=== PATIENT | male | born 1965 | race Caucasian/White ===

== ENCOUNTER 2024-07-30 19:01 | Inpatient (IN) | payer OTHER, SELFPAY ==
--- NOTE | ~2024-07-30 | CT_ITS ---
CLINICAL HISTORY: mulitocal pneumonia CT angiography chest with contrast. 3D Postprocessing. Comparison: None Findings: The heart is normal size. RV/LV ratio is normal. Mild atherosclerotic vascular disease of thoracic aorta. No aneurysm. No pulmonary artery filling defects. Prominent opacity in the left lower lobe abutting the pleura with 2 internal loculated fluid collections with some gas in the collections measuring 3.3 cm x 4.4 cm and 1.9 cm x 1 9 cm. Otherwise lungs are clear. No pleural effusion or pneumothorax. Small left hilar nodes and mediastinal nodes likely reactive. Visualized thyroid and thoracic esophagus within normal limits. The upper abdomen demonstrates no acute process. Thickening of left adrenal gland. No acute fractures. Mild degenerative changes of the spine. IMPRESSION: 1. No pulmonary embolus. 2. Prominent left lower lobe opacity with 2 adjacent loculated fluid collections with some gas in the collections. Findings suspicious for pneumonia and pulmonary abscesses with reactive hilar mediastinal nodes. Clinical correlation recommended and after treatment follow-up is recommended to ensure complete resolution and no underlying mass. This document has been electronically signed by: Oma Jessica MD on 07/30/2024 21:11:40
[2024-07-30 19:05] VITALS: BP 137/72; PULSE 94; RESP 20; TEMP 38; O2SAT 97; BMI 22.8
--- NOTE | 2024-07-30 19:09 | ED_ITS ---
HPI - General Adult General Chief complaint: Dyspnea Stated complaint: pneumonia - sent by Urgent Care Time Seen by Provider: 07/30/24 19:11 Source: patient Mode of arrival: ambulatory Limitations: no limitations History of Present Illness ED Provider: radha locke NP HPI narrative: Patient is a 58-year-old male reported past medical history of dementia, chronic tobacco smoker half a pack per day who presents emergency department for evaluation. He states that he coming from urgent Care today, he was referred to emergency department due to concern for multifocal pneumonia, early cavitating lesions. When asked for risk factors in regard to TV he does admit that about 5 years ago he was incarcerated for about 4 or 5 years otherwise no additional risk factors. He denies having a chronic cough. He states that little over a week ago he had routine blood work done with his doctor and was told that he had a high white blood cell count. This was not repeated as he became ill. He states ?I was sick and in bed for the last 5 days?. Reports that he has been ?sleeping, sweating, and cold with shortness of breath a terrible smelling cough with mucus?. States he has been using Mucinex and Vicks without much improvement. Reports emergent care indicated that he was febrile at 100.6 tachycardic at 01:02, here pulses greater than 90, temp 100.4 degrees. He states he did not receive any acetaminophen at the urgent care. Related Data Allergies Allergy/AdvReac Type Severity Reaction Status Date / Time Hayfever Allergy Unknown Unknown Uncoded 07/30/24 19:08 Review of Systems 2 Review of Systems: Yes all other systems are reviewed and are negative PMFSH Past Medical History Attestation statement: The following information was validated with the patient. Source: old records reviewed Social History Social History Smoked in Last 30 Days: Yes Use of substances other than those prescribed or required for medical reasons: Yes Substance Use Type: Crack/Cocaine Substance Use Frequency: Chronic Longstanding Advance Directives: No Advance Directives Information Provided: No Physical Exam ED Vital Signs: Vital Signs - 24 hr 07/30/24 19:05 Temperature 100.4 F Pulse Rate 94 Respiratory Rate 20 Blood Pressure 137/72 Pulse Oximetry 97 Oxygen Delivery Method Room Air BMI result Body Mass Index 22.8 Appearance: Alert.?Oriented to person, place and time. No acute distress.?Normal affect. Eyes: Pupils equal, round and reactive to light.? ENT: Pharynx normal.?? Neck: Normal inspection.? Neck supple.?? CVS: Heart sounds normal. Normal heart rate and rhythm.? Pulses normal.?? Respiratory: No respiratory distress.? Lung sounds clear to auscultation bilaterally, diminished bilateral bases Abdomen: Soft and non-tender. Normoactive bowel sounds. Skin: Skin warm and dry.? Normal skin color.? ? Extremities: No lower extremity edema.? No calf ttp? Neuro: Moves all extremities spontaneously. Sensation intact bilaterally. No focal neuro deficits. Ambulates with normal steady gait. Course Course Course Narrative: RME, this is a rapid medical exam performed by Daniel Fraga please refer to primary provider for complete H&P- 58-year-old male presents for evaluation of multifocal pneumonia from urgent care. Patient apparently saw his doctor little over week ago and had a high white count. He reports that he was unable to follow-up because ?I was sick and in bed for the last 5 days. ? [facility] urgent Care reports the patient had attempted 100.6, heart rate of 102 and an oxygen saturation 97% on room air but his chest x-ray showed early cavitating lesions. The patient has no risk factors for TB. Plan for labs including blood cultures, CT scan with IV contrast. Reevaluation(s) Reevaluation #1: Spoke With hospitalist regarding admission to medicine service; sepsis secondary to left sudden pneumonia with pulmonary abscess. Medications Administered Generic Name Dose Route Start Last Admin Trade Name Freq PRN Reason Stop Dose Admin Benzonatate 200 mg 07/30/24 21:46 07/30/24 22:12 Benzonatate 100 Mg Capsule PO 200 mg TID PRN Administration Cough Enoxaparin Sodium 40 mg 07/30/24 22:00 07/30/24 22:13 Enoxaparin Sodium 40 Mg/0.4 Ml Syringe SUBCUT 40 mg Q24H MAGALY Administration Guaifenesin/Codeine Phosphate 5 ml 07/30/24 21:47 07/30/24 22:12 Guaifen/Codeine Sf 200/20/10ml 10 Ml Liquid PO 5 ml Q4H PRN Administration Cough Ampicillin Sodium/Sulbactam 100 mls @ 200 mls/hr 07/30/24 22:00 07/30/24 23:00 Sodium 3 gm/ Sodium Chloride IV Infused Q6H MAGALY Infusion Sodium Chloride 3 ml 07/31/24 00:00 07/30/24 23:44 0.9 % Sodium Chloride Flush 3 Ml Syringe IVFLUSH 3 ml QSHIFT MAGALY Administration Discontinued Medications Generic Name Dose Route Start Last Admin Trade Name Roc PRN Reason Stop Dose Admin Acetaminophen 975 mg 07/30/24 19:49 07/30/24 20:01 Acetaminophen 325 Mg Tablet PO 07/30/24 19:50 975 mg ONCE ONE Administration Ceftriaxone Sodium 1 gm 07/30/24 19:45 07/30/24 20:01 Ceftriaxone Sodium 1 Gm Vial IVPUSH 07/30/24 19:46 1 gm ONCE ONE Administration Sodium Chloride 2,041.17 mls @ 2,041.17 mls/hr 07/30/24 19:45 07/30/24 21:44 Ns 30 ml/kg infuse over 1 hr (2041.17 ml) 07/30/24 20:44 Infused IV Infusion .Q1H STA Iohexol 65 ml 07/30/24 20:36 07/30/24 20:36 Iohexol 350 Mg/Ml 100 Ml Infus..Btl IV 07/30/24 20:37 65 ml ONCE ONE Administration Medical Decision Making Medical Decision Making MDM Narrative: Patient is a 58 year old male with dementia who presents emergency department for evaluation respiratory symptoms over the past 5 days productive cough shortness of breath tactile fevers and chills. Had outpatient x-ray at urgent care was reported concern for early cavitating lesions, unfortunately I am unable to visualize these images myself. As per HPI he did have incarceration about 5 years ago be his only risk factor for TB based on his history. Serum labs were obtained prior to my assumption of care including blood cultures and lactic acid, sepsis alert main called, sepsis fluid bolus has been ordered, acetaminophen for fever, Rocephin IV covering for pneumonia, obtaining CT angio of the chest for further evaluation. Denies having chest pain, however will obtain EKG to evaluate for ischemia/arrhythmia. Differential Diagnosis Differential Diagnoses: The differential diagnosis associated with the presentation includes (See narrative above) Admission/Observation Consideration of admission/observation: Escalation of care including admission/observation considered (See narrative above and course narrative for further detail) Lab Data [facility] Lab Attestation statement: I reviewed the patient's lab results. CBC revealing a leukocytosis with left shift, normocytic anemia that does not meet transfusion criteria, mild thrombocytosis 402,000. No electrolyte derangement. No ANALI. No lactic acidosis. LFTs within normal range. BNP within normal range. Viral serologies are negative. 07/30/24 19:39 07/30/24 19:39 Labs: Lab Results 07/30/24 07/30/24 Range/Units 19:39 20:44 WBC 13.0 H (4.8-10.8) X10*3/uL RBC 3.61 L (4.60-5.80) X10*6/uL Hgb 11.1 L (14.0-18.0) g/dl Hct 32.5 L (42.0-52.0) % MCV 90.0 (80.0-98.0) fL MCH 30.7 (27.0-33.0) pg MCHC 34.2 (31.0-36.0) g/dl RDW 12.7 (11.0-16.0) % Plt Count 402 H (160-400) X10*3/uL MPV 9.2 L (9.4-12.4) fL Immature Gran % (Auto) 0.6 H (0.0-0.4) % Neut % (Auto) 73.4 H (45-73) % Lymph % (Auto) 15.1 L (20-40) % [place] % (Auto) 9.3 (2-11) % Eos % (Auto) 1.1 (0-4) % Baso % (Auto) 0.5 (0-2) % Lymph # (Auto) 2.0 (1.2-4.9) X10*3/uL [place] # (Auto) 1.2 (0.1-1.2) X10*3/uL Eos # (Auto) 0.1 (0.0-0.4) X10*3/uL Baso # (Auto) 0.1 (0.0-0.2) X10*3/uL Abs Immat Gran (auto) 0.08 H (0.00-0.03) X10*3/uL Absolute Neuts (auto) 9.5 H (2.0-8.3) x10*3/uL Absolute Nucleated RBC 0.000 (0.0-0.012) X10*3/uL Nucleated RBC % (auto) 0.0 (0.0-0.2) /100WBC Sodium 137 (135-145) mmol/L Potassium 3.8 (3.3-5.1) mmol/L Chloride 101 (96-108) mmol/L Carbon Dioxide 28 (22-29) mmol/L Anion Gap 12 (12-20) BUN 13 (9-16) mg/dL Creatinine 0.83 (0.5-1.4) mg/dL Estim Creat Clear Calc 91.0 Estimated GFR > 60 Random Glucose 96 (60-115) mg/dL Lactic Acid 0.8 (0.5-2.0) mmol/L Calcium 8.1 L (8.4-10.2) mg/dL Total Bilirubin 0.3 (0.0-1.0) mg/dL AST 19 (5-37) U/L ALT 7 (0-40) U/L Alkaline Phosphatase 83 (39-117) U/L B-Natriuretic Peptide 37 (<100) pg/mL Total Protein 6.7 (6.5-8.0) g/dL Albumin 3.0 L (3.5-5.0) g/dL Lipase 23 (8-78) U/L Urine Color Yellow Urine Appearance Clear Urine pH 6.5 (5.0-9.0) Ur Specific [place] 1.015 (1.005-1.025) Urine Protein Negative (Neg-Trace) mg/dL Urine Glucose (UA) Negative (Negative) mg/dL Urine Ketones Negative (Negative) mg/dL Urine Blood Large (3+) H (Negative) Urine Nitrite Negative (Negative) Ur Leukocyte Esterase Negative (Negative) Urine RBC >20 H (0-2) /HPF Urine WBC 0-5 (0-5) /HPF Ur Squamous Epith Cells 0-2 (0-2) /HPF Urine Bacteria None Seen (None Seen) Hyaline Casts 0-2 (0-2) /LPF Influenza Type A (PCR) NEGATIVE (Negative) Influenza Type B (PCR) NEGATIVE (Negative) RSV RNA Qual (PCR) NEGATIVE (Negative) SARS-CoV-2 RNA (RT-PCR) NEGATIVE (Negative) Radiology Impression Discussion of test interpretation with radiology: I have reviewed the radiologist's reading. Radiologist Impression: CT angiography chest with contrast. 3D Postprocessing. Comparison: None Findings: The heart is normal size. RV/LV ratio is normal. Mild atherosclerotic vascular disease of thoracic aorta. No aneurysm. No pulmonary artery filling defects. Prominent opacity in the left lower lobe abutting the pleura with 2 internal loculated fluid collections with some gas in the collections measuring 3.3 cm x 4.4 cm and 1.9 cm x 1 9 cm. Otherwise lungs are clear. No pleural effusion or pneumothorax. Small left hilar nodes and mediastinal nodes likely reactive. Visualized thyroid and thoracic esophagus within normal limits. The upper abdomen demonstrates no acute process. Thickening of left adrenal gland. No acute fractures. Mild degenerative changes of the spine. IMPRESSION: 1. No pulmonary embolus. 2. Prominent left lower lobe opacity with 2 adjacent loculated fluid collections with some gas in the collections. Findings suspicious for pneumonia and pulmonary abscesses with reactive hilar mediastinal nodes. Clinical correlation recommended and after treatment follow-up is recommended to ensure complete resolution and no underlying mass. Independent Historian Clinical information obtained from an independent historian. History obtained from or confirmed by: Other (Daughter) External Record Review External record reviewed: Outpatient record Chronic Conditions Patient?s care impacted by: Other (See narrative above) Discharge Plan Discharge Clinical Impression: Lung abscess, Pneumonia, Sepsis Patient Disposition: Admitted As Inpatient
--- NOTE | 2024-07-30 19:10 | ECG_ITS ---
Test Reason : SHORTNESS OF BREATH Blood Pressure : */* mmHG Vent. Rate : 91 BPM Atrial Rate : 91 BPM P-R Int : 126 ms QRS Dur : 134 ms QT Int : 414 ms P-R-T Axes : 77 84 38 degrees QTcB Int : 509 ms Normal sinus rhythm Right bundle branch block Abnormal ECG No previous ECGs available Referred By: Sathya Fraga Electronically Signed By: KAREL BRAGG
[2024-07-30 19:50] LABS: MANUAL DIFF FLAG NO
[2024-07-30 19:51] LABS: Basophils Absolute Auto 0.1 X10*3/uL (0.0-0.2); Basophils Percent Auto 0.5 % (0-2); Eosinophils Absolute Auto 0.1 X10*3/uL (0.0-0.4); Eosinophils Percent Auto 1.1 % (0-4); Hematocrit 32.5 % (42.0-52.0); Hemoglobin 11.1 g/dl (14.0-18.0); Imm Gran Abs Auto 0.08 X10*3/uL (0.00-0.03); Imm Gran Pct Auto 0.6 % (0.0-0.4); Lymphocytes Percent Auto 15.1 % (20-40); Mean Corpuscular HGB Conc 34.2 g/dl (31.0-36.0); Mean Corpuscular Hemoglobin 30.7 pg (27.0-33.0); Mean Platelet Volume 9.2 fL (9.4-12.4); Monocytes Absolute Auto 1.2 X10*3/uL (0.1-1.2); Monocytes Percent Auto 9.3 % (2-11); Neutrophils Absolute Auto 9.5 x10*3/uL (2.0-8.3); Neutrophils Percent Auto 73.4 % (45-73); Platelet Count 402 X10*3/uL (160-400); Red Blood Count 3.61 X10*6/uL (4.60-5.80); Red Cell Distribution Width 12.7 % (11.0-16.0)
[2024-07-30] MEDS: 0.9 % Sodium Chloride 2,041.17 ML 2041.17 ML IV (19:55)
[2024-07-30] MEDS: cefTRIAXone sodium 1 GM VIAL IVPUSH (20:01)
[2024-07-30] MEDS: Acetaminophen 325 MG TABLET 975 MG PO (20:01)
[2024-07-30 20:13] LABS: Lactic Acid 0.8 mmol/L (0.5-2.0)
[2024-07-30 20:17] LABS: Alanine Aminotransferase 7 U/L (0-40); Alkaline Phosphatase 83 U/L (39-117); Anion Gap 12 (12-20); Aspartate Amino Transferase 19 U/L (5-37); B Type Natriuretic Peptide 37 pg/mL (<100); Bilirubin Total 0.3 mg/dL (0.0-1.0); Blood Urea Nitrogen 13 mg/dL (9-16); Calcium 8.1 mg/dL (8.4-10.2); Carbon Dioxide 28 mmol/L (22-29); Chloride 101 mmol/L (96-108); Estimated Glomerular Filt Rate > 60; Glucose Random 96 mg/dL (60-115); Lipase 23 U/L (8-78); Potassium 3.8 mmol/L (3.3-5.1); Sodium 137 mmol/L (135-145); Total Protein 6.7 g/dL (6.5-8.0)
[2024-07-30 20:36] LABS: Influenza A PCR NEGATIVE (Negative); Influenza B PCR NEGATIVE (Negative); Resp Syncy Virus RNA Qual PCR NEGATIVE (Negative); SARS COV2 PCR INHOUSE NEGATIVE (Negative)
[2024-07-30] MEDS: iohexoL 350 MG/ML 100 ML INFUS..BTL 65 ML IV (20:36)
[2024-07-30 20:54] LABS: Appearance Urine Clear; Color Urine Yellow; Glucose Urine UA Negative (Negative); Leukocyte Esterase Urine Negative (Negative); Nitrite Urine Negative (Negative); PH 6.5 (5.0-9.0); Specific Gravity - Urine 1.015 (1.005-1.025); UMIC TRIGGER UACC YES; Urine Blood Large (3+) (Negative); Urine Ketones Negative (Negative); Urine Protein Negative (Neg-Trace)
[2024-07-30 20:56] LABS: Bacteria Urine None Seen (None Seen); Hyaline Casts Urine 0-2 /LPF (0-2); Squamous Epithelial Cell Urine 0-2 /HPF (0-2); WBC Urine 0-5 /HPF (0-5)
[2024-07-30 20:58] LABS: RBC Urine >20 /HPF (0-2)
--- NOTE | 2024-07-30 21:19 | PM.IMHP ---
History of Present Illness Date of Service: 07/30/24 Chief Complaint: Cough, fever This is a 58-year-old male with pertinent history of TIA, cognitive impairment, tobacco use disorder, cocaine use disorder who was sent to the emergency department for evaluation of abnormal chest x-ray. Patient states his symptoms started 2 weeks prior to presentation. He started having cough which worsened in the last 5 days. It is associated with terrible smelling mucous, fever and chills. No history of hospital admission due to lung infections in the past. Patient was seen at an urgent care with x-ray was done and patient was sent to the ER for concern of multifocal pneumonia/cavitating lesions. No sick contacts as far as he knows. Endorses smoking tobacco and smoking cocaine, last use in the day of presentation. Also has been having chills due to which he is unable to sleep at night. No chest pain, palpitations, abdominal pain, changes in urinary or bowel habits. In the emergency department, imaging with left-sided pneumonia and lung abscesses. Found to be febrile with leukocytosis in the ER. Given IV crystalloids and IV antibiotics. PMFSH Social History Smoked in Last 30 Days: Yes Use of substances other than those prescribed or required for medical reasons: Yes Substance Use Type: Crack/Cocaine Substance Use Frequency: Chronic Longstanding Advance Directives: No Advance Directives Information Provided: No Meds Allergies Allergy/AdvReac Type Severity Reaction Status Date / Time Hayfever Allergy Unknown Unknown Uncoded 07/30/24 19:08 Physical Exam Vital Signs and Narrative: Vital Signs: Last Vital Signs Temp 100.4 F 07/30/24 19:05 Pulse 94 07/30/24 19:05 Resp 20 07/30/24 19:05 BP 137/72 07/30/24 19:05 Pulse Ox 97 07/30/24 19:05 O2 Del Method Room Air 07/30/24 19:05 BMI result Body Mass Index 22.8 Middle-aged male lying in bed in no distress Neck supple, no JVD Regular rate and rhythm, S1-S2 heard Left-sided crackles without wheezing Abdomen soft nontender, no guarding, no rigidity Patient is awake, alert and oriented to self, place, time and person ; no focal motor deficit Psych: Normal mood No pedal edema Results Labs 07/30/24 19:39 07/30/24 19:39 Labs: Laboratory Results - last 24 hr 07/30/24 07/30/24 19:39 20:44 MCV 90.0 MCH 30.7 MCHC 34.2 RDW 12.7 Plt Count 402 H MPV 9.2 L Immature Gran % (Auto) 0.6 H Neut % (Auto) 73.4 H Lymph % (Auto) 15.1 L [place] % (Auto) 9.3 Eos % (Auto) 1.1 Baso % (Auto) 0.5 Lymph # (Auto) 2.0 [place] # (Auto) 1.2 Eos # (Auto) 0.1 Baso # (Auto) 0.1 Abs Immat Gran (auto) 0.08 H Absolute Neuts (auto) 9.5 H Absolute Nucleated RBC 0.000 Nucleated RBC % (auto) 0.0 Anion Gap 12 Estim Creat Clear Calc 91.0 Estimated GFR > 60 Random Glucose 96 Lactic Acid 0.8 Calcium 8.1 L Total Bilirubin 0.3 AST 19 ALT 7 Alkaline Phosphatase 83 B-Natriuretic Peptide 37 Total Protein 6.7 Albumin 3.0 L Lipase 23 Urine Color Yellow Urine Appearance Clear Urine pH 6.5 Ur Specific [place] 1.015 Urine Protein Negative Urine Glucose (UA) Negative Urine Ketones Negative Urine Blood Large (3+) H Urine Nitrite Negative Ur Leukocyte Esterase Negative Urine RBC >20 H Urine WBC 0-5 Ur Squamous Epith Cells 0-2 Urine Bacteria None Seen Hyaline Casts 0-2 Influenza Type A (PCR) NEGATIVE Influenza Type B (PCR) NEGATIVE RSV RNA Qual (PCR) NEGATIVE SARS-CoV-2 RNA (RT-PCR) NEGATIVE Assessment and Plan (1) Lung abscess: Status: Acute (2) Pneumonia: Status: Acute Plan This is a 58-year-old male with pertinent history of TIA, cognitive impairment, tobacco use disorder, cocaine use disorder who was sent to the emergency department for evaluation of abnormal chest x-ray. #. Sepsis due to left lung pneumonia with pulmonary abscesses: Will admit patient with IV Unasyn. Resuscitated with IV crystalloids. Lactic acid and blood culture obtained. Consulted pulmonology. Sputum culture pending. #. Tobacco use disorder: Refused NRT while in the hospital #. History of TIA: On aspirin #. Cocaine use disorder: Monitor for withdrawal. Consulted Addiction Team Med rec pending DVT prophylaxis: Lovenox Full code Admit as inpatient and will require two night minimum hospital stay for IV antibiotics (as above), which is not possible in a lesser acute setting. Specialist consult pending Quality Stroke Does the patient have a stroke diagnosis?: No VTE Prior VTE?: No VTE Risk Level:: Medical - moderate - high VTE Device Contraindication: Treatment Not Indicated VTE Drug Contraindication: N/A - Med Ordered
[2024-07-30 22:05] VITALS: BP 116/74; PULSE 79; RESP 16; TEMP 36.8; O2SAT 96
[2024-07-30] MEDS: Benzonatate 100 MG CAPSULE 200 MG PO (22:12)
[2024-07-30] MEDS: guaiFEN/Codeine SF 200/20/10ML 10 ML LIQUID 5 ML PO (22:12)
[2024-07-30] MEDS: Ampicillin Sodium/Sulbactam Na 3 GM in 0.9 % Sodium Chloride 100 ML IV (22:13)
[2024-07-30] MEDS: Enoxaparin Sodium 40 MG/0.4 ML SYRINGE SUBCUT (22:13)
[2024-07-30 22:15] VITALS: BP 118/73; PULSE 85; RESP 15; O2SAT 96
--- NOTE | 2024-07-30 22:58 | PC.NURSE ---
Patient's granddaughter's number [phone] - call if needed.
[2024-07-30] MEDS: 0.9 % Sodium Chloride Flush 3 ML SYRINGE IVFLUSH (23:44)
--- NOTE | 2024-07-31 00:29 | PC.NURSE ---
assumed care of pt at 23:15
[2024-07-31 05:05] LABS: Basophils Absolute Auto 0.1 X10*3/uL (0.0-0.2); Basophils Percent Auto 0.3 % (0-2); Eosinophils Absolute Auto 0.1 X10*3/uL (0.0-0.4); Eosinophils Percent Auto 0.6 % (0-4); Hemoglobin 10.9 g/dl (14.0-18.0); Imm Gran Abs Auto 0.07 X10*3/uL (0.00-0.03); Imm Gran Pct Auto 0.5 % (0.0-0.4); Lymphocytes Absolute Auto 0.8 X10*3/uL (1.2-4.9); Lymphocytes Percent Auto 5.4 % (20-40); MANUAL DIFF FLAG NO; Mean Corpuscular HGB Conc 34.1 g/dl (31.0-36.0); Mean Corpuscular Hemoglobin 30.5 pg (27.0-33.0); Mean Corpuscular Volume 89.6 fL (80.0-98.0); Mean Platelet Volume 9.7 fL (9.4-12.4); Monocytes Absolute Auto 1.3 X10*3/uL (0.1-1.2); Monocytes Percent Auto 8.4 % (2-11); Neutrophils Absolute Auto 12.5 x10*3/uL (2.0-8.3); Neutrophils Percent Auto 84.8 % (45-73); Platelet Count 403 X10*3/uL (160-400); Red Blood Count 3.57 X10*6/uL (4.60-5.80); Red Cell Distribution Width 12.7 % (11.0-16.0); White Blood Count 14.8 X10*3/uL (4.8-10.8)
[2024-07-31] MEDS: Ampicillin Sodium/Sulbactam Na 3 GM in 0.9 % Sodium Chloride 100 ML IV ×4 (05:05→22:09)
[2024-07-31 05:24] LABS: Anion Gap 11 (12-20); Blood Urea Nitrogen 15 mg/dL (9-16); Calcium 7.7 mg/dL (8.4-10.2); Carbon Dioxide 24 mmol/L (22-29); Chloride 109 mmol/L (96-108); Creatinine Clr Calc Pharmacy 94.4; Estimated Glomerular Filt Rate > 60; Glucose Random 110 mg/dL (60-115); Potassium 3.8 mmol/L (3.3-5.1); Sodium 140 mmol/L (135-145)
--- NOTE | 2024-07-31 08:39 | PHA.MEDREC ---
Addendum entered by Parker Antonio RPh 07/31/24 08:46: Reviewed by [facility] Original Note: Pharmacy Consult ? Medication Reconciliation Pharmacy has completed the medication reconciliation. Spoke with patient and he confirmed he is not taking any medications at this time.
--- NOTE | 2024-07-31 10:27 | HO.PM.IMPN ---
Subjective Subjective Date of Service: 07/31/24 Interval History: cough Physical Exam Vital Signs: Vital Signs: Last Vital Signs Temp 98.2 F 07/30/24 22:05 Pulse 85 07/30/24 22:15 Resp 15 07/30/24 22:15 BP 118/73 07/30/24 22:15 Pulse Ox 96 07/30/24 22:15 O2 Del Method Room Air 07/30/24 22:15 BMI result Body Mass Index 22.8 General: AO X 3, no acute distress Resp: CTA bilateral, no accessory muscles used CVS: S1,S2,RRR GI: soft, non tender, non distended Neuro: motor grossly intact, alert Psych: appropriate affect, appropriate insight Objective Data Active Medications Acetaminophen (Acetaminophen 325 Mg Tablet) 650 mg PO Q6H PRN PRN Reason: Pain, Mild 1-3,fever,headache Benzocaine (Throat Lozenge, Medicated Lozenge) 1 lozenge MUCOUS MEM Q2H PRN PRN Reason: Sore Throat Benzonatate (Benzonatate 100 Mg Capsule) 200 mg PO TID PRN PRN Reason: Cough Last Admin: 07/30/24 22:12 Dose: 200 mg Documented By: DELVIS Calcium Carbonate (Calcium Carbonate 750 Mg Tab.Chew) 750 mg PO Q4H PRN PRN Reason: Heartburn Enoxaparin Sodium (Enoxaparin Sodium 40 Mg/0.4 Ml Syringe) 40 mg SUBCUT Q24H [facility] Last Admin: 07/30/24 22:13 Dose: 40 mg Documented By: MELCHORLC Guaifenesin/Codeine Phosphate (Guaifen/Codeine Sf 200/20/10ml 10 Ml Liquid) 5 ml PO Q4H PRN PRN Reason: Cough Last Admin: 07/30/24 22:12 Dose: 5 ml Documented By: DITOLC Ampicillin Sodium/Sulbactam (Sodium 3 gm/ Sodium Chloride) 100 mls @ 200 mls/hr IV Q6H [facility] Last Infusion: 07/31/24 05:35 Dose: Infused Documented By: DELMER-MARÍA ELENA Magnesium Hydroxide (Milk Of Magnesia 30 Ml Oral.Susp) 30 ml PO DAILY PRN PRN Reason: Constipation Melatonin (Melatonin 3 Mg Tablet) 6 mg PO BEDTIME PRN PRN Reason: Insomnia Ondansetron HCl (Ondansetron Hcl 4 Mg/2 Ml Vial) 4 mg IVPUSH Q8H PRN PRN Reason: Nausea and Vomiting Sodium Chloride (0.9 % Sodium Chloride Flush 3 Ml Syringe) 3 ml IVFLUSH QSHIFT [facility] Last Admin: 07/31/24 07:19 Dose: Not Given Documented By: VIELKA Non-Admin Reason: Previously Administered Labs 07/31/24 03:47 07/31/24 03:47 Labs: Laboratory Results - last 24 hr 07/30/24 07/30/24 07/31/24 19:39 20:44 03:47 MCV 90.0 89.6 MCH 30.7 30.5 MCHC 34.2 34.1 RDW 12.7 12.7 Plt Count 402 H 403 H MPV 9.2 L 9.7 Immature Gran % (Auto) 0.6 H 0.5 H Neut % (Auto) 73.4 H 84.8 H Lymph % (Auto) 15.1 L 5.4 L [place] % (Auto) 9.3 8.4 Eos % (Auto) 1.1 0.6 Baso % (Auto) 0.5 0.3 Lymph # (Auto) 2.0 0.8 L [place] # (Auto) 1.2 1.3 H Eos # (Auto) 0.1 0.1 Baso # (Auto) 0.1 0.1 Abs Immat Gran (auto) 0.08 H 0.07 H Absolute Neuts (auto) 9.5 H 12.5 H Absolute Nucleated RBC 0.000 0.000 Nucleated RBC % (auto) 0.0 0.0 Anion Gap 12 11 L Estim Creat Clear Calc 91.0 94.4 Estimated GFR > 60 > 60 Random Glucose 96 110 Lactic Acid 0.8 Calcium 8.1 L 7.7 L Total Bilirubin 0.3 AST 19 ALT 7 Alkaline Phosphatase 83 B-Natriuretic Peptide 37 Total Protein 6.7 Albumin 3.0 L Lipase 23 Urine Color Yellow Urine Appearance Clear Urine pH 6.5 Ur Specific [place] 1.015 Urine Protein Negative Urine Glucose (UA) Negative Urine Ketones Negative Urine Blood Large (3+) H Urine Nitrite Negative Ur Leukocyte Esterase Negative Urine RBC >20 H Urine WBC 0-5 Ur Squamous Epith Cells 0-2 Urine Bacteria None Seen Hyaline Casts 0-2 Influenza Type A (PCR) NEGATIVE Influenza Type B (PCR) NEGATIVE RSV RNA Qual (PCR) NEGATIVE SARS-CoV-2 RNA (RT-PCR) NEGATIVE Assessment and Plan (1) Lung abscess: Status: Acute Plan 58M PMH TIA, polysubstance dependence presented with cough Sepsis due to left lung pneumonia with concern for pulmonary abscess Continue IV Unasyn, follow up Pulmonary and cultures History of TIA Aspirin Polysubstance dependence No signs of withdrawal DVT prophylaxis with Lovenox Full Code reason for continued hospitalization:iv abx for abscess Quality Stroke Does the patient have a stroke diagnosis?: No VTE Prior VTE?: No VTE Risk Level:: Medical - moderate - high VTE Device Contraindication: Treatment Not Indicated VTE Drug Contraindication: N/A - Med Ordered
[2024-07-31 11:26] VITALS: BP 115/71; PULSE 70; RESP 20; TEMP 36.8; O2SAT 96
--- NOTE | 2024-07-31 13:35 | P.CONPL_ITS ---
History of Present Illness History of Present Illness Consult date: 07/31/24 Chief complaint: Pulmonary abscess Narrative: 58-year-old gentleman, active 30+ pack-year smoker, with underlying history of substance abuse and prior TIA admitted on 07/30/2024 with cough, dyspnea, and hypoxia. On initial evaluation patient not to have left lower lobe pneumonia with underlying abscess. He was started on empiric antibiotics with slow improvement. Review of Systems 2 Constitutional: Constitutional: Denies daytime sleepiness, Denies excessive sweating, Denies fatigue, Denies fever(s), Denies lethargy, Denies malaise, Denies night sweats, Denies snoring and Denies weight loss Eyes: Eyes: Denies blurry vision and Denies itchy eyes ENT: Denies nasal congestion, Denies post nasal drip, Denies sinus pain, Denies sinus pressure and Denies other ( Thrush) Cardiovascular: Cardiovascular: Denies chest pain, Denies pedal edema, Denies dyspnea, Reports dyspnea on exertion, Denies orthopnea and Denies paroxysmal nocturnal dyspnea Respiratory: Respiratory: Reports cough, Denies hemoptysis, Reports excessive phlegm production, Denies dyspnea, Reports dyspnea on exertion, Denies snoring and Denies wheezing Gastrointestinal: Gastrointestinal: Denies abdominal pain and Denies heartburn Musculoskeletal: Musculoskeletal: Denies myalgias, Denies arthralgias and Denies joint swelling Integumentary/Breasts: Skin/Breast: Denies rash Neurologic: Denies memory loss and Denies seizure-like activity Psychiatric: Psychiatric: Denies abnormal sleep pattern, Denies anxiety and Denies memory loss Endocrine: Endocrine: Denies excessive sweating, Denies fatigue and Denies heat intolerance Hematologic/Lymphatic: Hematologic/Lymphatic: Denies easy bruising Allergic/Immunologic: Allergic/Immunologic: Denies itchy eyes, Denies seasonal rhinorrhea and Denies wheezing PMFSH Social History Social History Patient Tobacco Use Status: Current everyday Tobacco user Smoked in Last 30 Days: Yes Use of substances other than those prescribed or required for medical reasons: Yes Substance Use Type: Crack/Cocaine Substance Use Frequency: Chronic Longstanding Advance Directives: No Advance Directives Information Provided: No Nutrition Risks: No Nutritional Risk Meds Allergies Allergy/AdvReac Type Severity Reaction Status Date / Time Hayfever Allergy Unknown Unknown Uncoded 07/30/24 19:08 Active Medications: Current Medications Acetaminophen (Acetaminophen 325 Mg Tablet) 650 mg PO Q6H PRN PRN Reason: Pain, Mild 1-3,fever,headache Aspirin (Aspirin Enteric Coated 81 Mg Tablet.Dr) 81 mg PO DAILY [facility] Benzocaine (Throat Lozenge, Medicated Lozenge) 1 lozenge MUCOUS MEM Q2H PRN PRN Reason: Sore Throat Benzonatate (Benzonatate 100 Mg Capsule) 200 mg PO TID PRN PRN Reason: Cough Last Admin: 07/30/24 22:12 Dose: 200 mg Calcium Carbonate (Calcium Carbonate 750 Mg Tab.Chew) 750 mg PO Q4H PRN PRN Reason: Heartburn Enoxaparin Sodium (Enoxaparin Sodium 40 Mg/0.4 Ml Syringe) 40 mg SUBCUT Q24H [facility] Last Admin: 07/30/24 22:13 Dose: 40 mg Guaifenesin/Codeine Phosphate (Guaifen/Codeine Sf 200/20/10ml 10 Ml Liquid) 5 ml PO Q4H PRN PRN Reason: Cough Last Admin: 07/30/24 22:12 Dose: 5 ml Ampicillin Sodium/Sulbactam (Sodium 3 gm/ Sodium Chloride) 100 mls @ 200 mls/hr IV Q6H [facility] Last Infusion: 07/31/24 12:40 Dose: Infused Magnesium Hydroxide (Milk Of Magnesia 30 Ml Oral.Susp) 30 ml PO DAILY PRN PRN Reason: Constipation Melatonin (Melatonin 3 Mg Tablet) 6 mg PO BEDTIME PRN PRN Reason: Insomnia Ondansetron HCl (Ondansetron Hcl 4 Mg/2 Ml Vial) 4 mg IVPUSH Q8H PRN PRN Reason: Nausea and Vomiting Sodium Chloride (0.9 % Sodium Chloride Flush 3 Ml Syringe) 3 ml IVFLUSH QSHIFT [facility] Last Admin: 07/31/24 07:19 Dose: Not Given Home Medications ?Medication ?Instructions ?Recorded ?Confirmed ?Last Taken ?Type No Known Home Meds 07/31/24 07/31/24 Unknown History Physical Exam 2 Vital Signs: Vital Signs: Last Vital Signs Temp 98.2 F 07/31/24 11:26 Pulse 70 07/31/24 11:26 Resp 20 07/31/24 11:26 BP 115/71 07/31/24 11:26 Pulse Ox 96 07/31/24 11:26 O2 Del Method Room Air 07/31/24 11:26 BMI result Body Mass Index 22.8 Const: General: no acute distress and alert Nutritional Appearance: not obese Orientation/consciousness: Other orientation findings ( oriented) HEENT: Head: Yes atraumatic Eyes: General: appearance normal, both eyes and all related structures S clerae: sclerae normal EOM: EOMs intact bilaterally Neck: Neck: Yes supple Lymphatic: no lymphadenopathy noted Resp: Effort & Inspection: normal respiratory effort and no use of accessory muscles Auscultation: clear to auscultation bilaterally Cardio: Rate: regular rate Rhythm: regular rhythm Heart sounds: no gallops, no murmurs and no rubs Skin: General skin exam: other ( warm) Extrem: General: No clubbing, No cyanosis and No edema Results Laboratory Findings 07/31/24 03:47 07/31/24 03:47 Abnormal lab findings: Abnormal Labs 07/30/24 07/30/24 07/31/24 19:39 20:44 03:47 WBC 13.0 H 14.8 H RBC 3.61 L 3.57 L Hgb 11.1 L 10.9 L Hct 32.5 L 32.0 L Plt Count 402 H 403 H MPV 9.2 L Immature Gran % (Auto) 0.6 H 0.5 H Neut % (Auto) 73.4 H 84.8 H Lymph % (Auto) 15.1 L 5.4 L Lymph # (Auto) 0.8 L [place] # (Auto) 1.3 H Abs Immat Gran (auto) 0.08 H 0.07 H Absolute Neuts (auto) 9.5 H 12.5 H Chloride 109 H Anion Gap 11 L Calcium 8.1 L 7.7 L Albumin 3.0 L Urine Blood Large (3+) H Urine RBC >20 H Assessment and Plan (1) Lung abscess: Status: Acute (2) Pneumonia: Status: Acute Plan Impression: 58-year-old gentleman admitted with pneumonia and pulmonary abscess on a background of substance abuse. Improving slowly with empiric antibiotics. Recommendations: Obtain sputum culture. Agree with empiric Unasyn, will tailor outpatient regimen based on sputum culture. Will likely require 28 days of Augmentin and outpatient pulmonary follow-up. Procedures Date of Service Date of Service: 07/31/24
[2024-07-31] MEDS: 0.9 % Sodium Chloride Flush 3 ML SYRINGE IVFLUSH ×2 (15:32→22:10)
--- NOTE | 2024-07-31 16:03 | MHC.CM.PN ---
CM MET WITH PT AND BROTHER AT BEDSIDE THEY REPORT PT LIVES AT HOME WITH HIS DAUGHTER THEY WERE UNABLE TO CONFIRM IF PT HAD SERVICES OR A HCP BUT STATED PTS DAUGHTER WOULD BE ABLE TO ANSWER ANY QUESTIONS AND PT THINKS HE ASSIGNED HER A [facility] CM CALLED PTS DAUGHTER, KELI [phone] SHE CONFIRMS PT HAS NO SERVICES IN THE HOME BUT STATES SHE HAS BEEN TRYING TO GET SOME ARRANGED BY THE PCP SHE IS AGREEABLE TO A [facility] REFERRAL SHE SAYS SHE WORKS AND DURING THAT TIME, THE PT STAYS WITH HER MOTHER, HIS EX- PT HAS NO DME PCP: ENRIQUE DICKEY BELIEVES THERE IS A HCP ON FILE AT THE PCP OFFICE DCP: HOME WITH A [facility] REFERRAL DAUGHTER TO TRANSPORT
[2024-07-31 20:18] VITALS: BP 104/51; PULSE 90; RESP 20; TEMP 37.2; O2SAT 93
[2024-07-31] MEDS: Enoxaparin Sodium 40 MG/0.4 ML SYRINGE SUBCUT (22:08)
--- NOTE | 2024-07-31 22:25 | PC.NURSE ---
Assumed care of patient at 19:00. Patient seen in ED overflow. A&Ox3. Rings appropriately to make needs known. +radial and dp pulses, +cms. Ambulates to bathroom without issue. Continues with +cough, non-productive at this time. Pt and daughter at bedside educated on ordered sputum sample this evening and a sterile sample cup was provided for when a sample can be expectorated. Pt denies chest pain and sob. Breathing is even and unlabored without distress on room air. VSS. Denies n/v. Tolerated dinner from home this evening. Denies pain. Scheduled unasyn and lovenox administered per AUG. Call brooks within reach and educated on use. Safety measures in place.
[2024-08-01] MEDS: Ampicillin Sodium/Sulbactam Na 3 GM in 0.9 % Sodium Chloride 100 ML IV ×2 (03:47→09:16)
--- NOTE | 2024-08-01 03:51 | PC.NURSE ---
pt medicated per mar.
[2024-08-01 04:58] VITALS: BP 123/68; PULSE 73; RESP 18; TEMP 37.1; O2SAT 95
--- NOTE | 2024-08-01 06:22 | PC.NURSE ---
pt resting, assisted with urinal.
[2024-08-01 06:54] LABS: Hematocrit 33.7 % (42.0-52.0); Hemoglobin 11.4 g/dl (14.0-18.0); Mean Corpuscular HGB Conc 33.8 g/dl (31.0-36.0); Mean Corpuscular Hemoglobin 30.6 pg (27.0-33.0); Mean Corpuscular Volume 90.3 fL (80.0-98.0); Mean Platelet Volume 9.4 fL (9.4-12.4); Platelet Count 412 X10*3/uL (160-400); Red Blood Count 3.73 X10*6/uL (4.60-5.80); Red Cell Distribution Width 12.9 % (11.0-16.0); White Blood Count 15.3 X10*3/uL (4.8-10.8)
[2024-08-01 06:59] LABS: Anion Gap 10 (12-20); Blood Urea Nitrogen 13 mg/dL (9-16); Calcium 8.1 mg/dL (8.4-10.2); Carbon Dioxide 25 mmol/L (22-29); Chloride 106 mmol/L (96-108); Creatinine Clr Calc Pharmacy 107.9; Estimated Glomerular Filt Rate > 60; Glucose Random 114 mg/dL (60-115); Potassium 4.2 mmol/L (3.3-5.1); Sodium 137 mmol/L (135-145)
[2024-08-01] MEDS: Aspirin Enteric Coated 81 MG TABLET.DR PO (09:16)
[2024-08-01] MEDS: 0.9 % Sodium Chloride Flush 3 ML SYRINGE IVFLUSH (09:16)
[2024-08-01 10:56] VITALS: BP 119/69; PULSE 86; RESP 17; TEMP 36.7; O2SAT 95
[2024-08-01 13:30] LABS: MRSA Nasal PCR NEGATIVE (Negative); SA Nasal PCR NEGATIVE (Negative)
--- NOTE | 2024-08-01 14:13 | P.DS_ITS ---
DS: Providers Provider Date of Service: 08/01/24 Date of admission: 07/30/24 21:18 Date of discharge: 08/01/24 Primary care physician: Smooth Shirley MD Consults: 07/30/24 21:46 Consult to Pulmonology Routine Consulting Provider: [facility] Reason for consultation: lung abscess 07/30/24 21:53 Addiction Medicine Routine Consulting Provider: Addiction Covering Reason for consultation: cocaine use disorder DS: Diagnosis Discharge Diagnosis (1) Lung abscess: Status: Acute (2) Pneumonia: Status: Acute DS: Summary Hospital Course Hospital Course: HPI from admission H&P: This is a 58-year-old male with pertinent history of TIA, cognitive impairment, tobacco use disorder, cocaine use disorder who was sent to the emergency department for evaluation of abnormal chest x-ray. Patient states his symptoms started 2 weeks prior to presentation. He started having cough which worsened in the last 5 days. It is associated with terrible smelling mucous, fever and chills. No history of hospital admission due to lung infections in the past. Patient was seen at an urgent care with x-ray was done and patient was sent to the ER for concern of multifocal pneumonia/cavitating lesions. No sick contacts as far as he knows. Endorses smoking tobacco and smoking cocaine, last use in the day of presentation. Also has been having chills due to which he is unable to sleep at night. No chest pain, palpitations, abdominal pain, changes in urinary or bowel habits. In the emergency department, imaging with left-sided pneumonia and lung abscesses. Found to be febrile with leukocytosis in the ER. Given IV crystalloids and IV antibiotics. Hospital Course: Patient was admitted for sepsis due to left-sided pneumonia and possible lung abscess. He was initiated on IV Unasyn and had cultures drawn. His blood cultures are negative to date and his leukocytosis improving. He has remained afebrile. His sputum cultures have been collected and are pending final evaluation. He was also seen in consultation by Pulmonary who recommended 28 days of Augmentin and outpatient pulmonary follow up which he has been given a referral for. Nasal MRSA screen was negative for both MRSA as well as staph aureus. Patient's final blood cultures are pending 48 hours, however he is requesting discharge and hence will be sent home. Time Attestation Discharge Coordination Time (in mins): 35 Quality: Safe Use of Opioids Does Pt have an Active Cancer Diagnosis on the Problem List?: No Quality: Stroke Does the patient have a stroke diagnosis?: No Physical Exam Vital Signs: Vital Signs: Last Vital Signs Temp 98.0 F 08/01/24 10:56 Pulse 86 08/01/24 10:56 Resp 17 08/01/24 10:56 BP 119/69 08/01/24 10:56 Pulse Ox 95 08/01/24 10:56 O2 Del Method Room Air 08/01/24 10:56 BMI result Body Mass Index 22.8 Const: Other: General - no acute distress, appears comfortable Cardiovascular - regular rate and rhythm, S1-S2 Lungs - normal respiratory effort, clear to auscultation bilaterally, no wheezing Abdomen - soft, nontender, no rebound or guarding Extremities - no edema bilaterally Neuro - awake and alert, no focal deficits DS: Data Data Completed and Pending Labs on day of discharge: Laboratory Results - last 24 hr 08/01/24 08/01/24 06:27 12:03 WBC 15.3 H RBC 3.73 L Hgb 11.4 L Hct 33.7 L MCV 90.3 MCH 30.6 MCHC 33.8 RDW 12.9 Plt Count 412 H MPV 9.4 Absolute Nucleated RBC 0.000 Nucleated RBC % (auto) 0.0 Sodium 137 Potassium 4.2 Chloride 106 Carbon Dioxide 25 Anion Gap 10 L BUN 13 Creatinine 0.70 Estim Creat Clear Calc 107.9 Estimated GFR > 60 Random Glucose 114 Calcium 8.1 L Nasal Screen MRSA (PCR) NEGATIVE Nasal S. aureus Screen NEGATIVE Nasal MRSA/S.aureus Interp SEE NOTE Preliminary micro results at discharge 07/30/24 19:53 Blood Culture - Preliminary Blood - Venous No growth after 24 hours. 07/30/24 19:39 Blood Culture - Preliminary Blood - Venous No growth after 24 hours. Discharge Plan Discharge Anticipated Discharge Date/Time: 08/01/24 14:10 Patient Disposition: Home, Self-Care Discharge Diagnosis: Lung Abscess Referrals: Smooth Shirley MD [Primary Care Provider] - 1 Week Celso Chaparro MD [Physician] - 1 Week Discharge Medications: New amoxicillin-pot clavulanate 875-125 mg tablet 1 tab PO Q12H Qty: 56 0RF Discharge Orders: Discharge Order (Routine); Ordered 02/21/25 Ordered By: Dylan Merino Diet: Advance to usual diet Activity on Discharge: As tolerated Stand Alone Forms: Patient Portal Discharge page Print Language: Bangladeshi Care Plan Goals: Take Augmentin 1 tablet twice a day for 28 days Follow up with the Pulmonary Clinic for the results of your sputum cultures and possible change to antibiotics Health Concerns: see discharge summary Plan of Treatment: see discharge summary Assessment: see discharge summary Discharge Date/Time: 08/01/24 14:50
== END 2024-08-01 14:50 | disposition home or self-care (01) | DRG 720 ==
LOC: HO.ED 19:52 → HO.EDOVER 22:28 → HO.S3 08-01 10:54 → HO.EDOVER 08-01 11:01
PROVIDERS: Internal Medicine; Physician Assistant; Admitting Provider Student in an Organized Health Care Education/Training Program; Emergency Provider Emergency Medicine; PCP Internal Medicine; Visit Provider Family Medicine
DX: A41.9 Sepsis, unspecified organism (principal); J85.1 Abscess of lung with pneumonia; J18.9 Pneumonia, unspecified organism; F03.90 Unspecified dementia, unspecified severity, without behavioral disturbance, psychotic disturbance, mood disturbance, and anxiety; F14.90 Cocaine use, unspecified, uncomplicated; F19.20 Other psychoactive substance dependence, uncomplicated; F17.210 Nicotine dependence, cigarettes, uncomplicated; Z20.822 Contact with and (suspected) exposure to COVID-19; Z71.6 Tobacco abuse counseling; Z86.73 Personal history of transient ischemic attack (TIA), and cerebral infarction without residual deficits; Z79.82 Long term (current) use of aspirin
CPT/HCPCS: 0241U; 36415; 71275; 80048; 80053; 81001; 83605; 83690; 83880; 85025; 85027; 87040; 87070; 87205; 87640; 87641; 93005; 99285; J0295; J0696; J1650; Q9967; S9485

== ENCOUNTER → 2024-07-30 19:09 | Outpatient (BNV) | payer MEDICAID, SELFPAY | PROVIDERS: Emergency Provider Emergency Medicine; PCP Internal Medicine; Visit Provider Specialist | DX: J18.9 Pneumonia, unspecified organism (principal) | CPT/HCPCS: 71275 ==

== ENCOUNTER → 2024-07-30 19:10 | Outpatient (BNV) | payer OTHER, SELFPAY | PROVIDERS: Admitting Provider Student in an Organized Health Care Education/Training Program; Emergency Provider Emergency Medicine; PCP Internal Medicine; Visit Provider Internal Medicine | DX: I45.10 Unspecified right bundle-branch block (principal) | CPT/HCPCS: 93010 ==

== ENCOUNTER → 2024-07-30 19:11 | Outpatient (BNV) | payer MEDICAID, SELFPAY | PROVIDERS: Emergency Provider Emergency Medicine; PCP Internal Medicine; Visit Provider Student in an Organized Health Care Education/Training Program | DX: J85.2 Abscess of lung without pneumonia (principal); J18.9 Pneumonia, unspecified organism | CPT/HCPCS: 99233; 99239 ==

== ENCOUNTER → 2024-07-30 21:18 | Outpatient (BNV) | payer OTHER, SELFPAY | PROVIDERS: Admitting Provider Student in an Organized Health Care Education/Training Program; Emergency Provider Emergency Medicine; PCP Internal Medicine; Visit Provider Internal Medicine Pulmonary Disease | DX: J85.2 Abscess of lung without pneumonia (principal); J18.9 Pneumonia, unspecified organism | CPT/HCPCS: 99222 ==